=== PATIENT | male | born 1970 | race Caucasian/White ===

== ENCOUNTER 2022-08-07 22:35 | Emergency (ER) | payer OTHER ==
[2022-08-07 22:42] VITALS: BP 138/94; PULSE 74; RESP 16; TEMP 97.9; BMI 30.1
[2022-08-07] MEDS ORDERED: AMOX TR/POT CLAV 875MG/125MG TABLETS (FP) ONE (23:21)
[2022-08-07] MEDS ORDERED: AMOX TR/POT CLAV 875MG/125MG TABLETS (FP) PO ONE (23:21)
== END 2022-08-07 23:29 | disposition home or self-care (01) ==
LOC: FER 22:35
DX: H66.92 Otitis media, unspecified, left ear (principal)
CPT/HCPCS: 99283-25